=== PATIENT | female | born 1970 | race Caucasian/White ===

== ENCOUNTER 2016-11-13 07:15 | Emergency (ER) | payer MEDICAID ==
[~2016-11-13] VITALS: Ht 162.6 cm; Wt 76.9 kg
[~2016-11-13 07:15] MED LIST: 70/30; ALBU2.5V NEB; ALPR-475; CAFFEINE; CARI250T PO; CARI350T PO; DULO60CA7 PO; ESCI10TA10 PO; ESOM40CA; LISI-167 PO; REGULAR INSULIN SQ
[2016-11-13] MEDS ORDERED: SUMA100T3 PO (08:14)
[2016-11-13] MEDS ORDERED: KETOROLAC 30 MG/1 ML IM ONE (08:30)
[2016-11-13] MEDS ORDERED: OXYcodone/APAP 5/325MG TABLET PO ONE (08:30)
[2016-11-13] MEDS ORDERED: KETOROLAC 30 MG/1 ML ONE (09:48)
[2016-11-13] MEDS ORDERED: OXYcodone/APAP 5/325MG TABLET ONE (09:48)
[2016-11-13 10:34] LABS: C-REACTIVE PROTEIN, QUANT 0.04 mg/dL (0.02-0.49)
[2016-11-13 10:42] LABS: BLOOD UREA NITROGEN 16 mg/dL (7-18)
[2016-11-13 12:10] VITALS: BP 111/70
== END 2016-11-13 12:12 | disposition home or self-care (01) ==
LOC: ED 10:54
DX: M79.644 Pain in right finger(s) (principal); I10 Essential (primary) hypertension; E78.00 Pure hypercholesterolemia, unspecified; E11.9 Type 2 diabetes mellitus without complications; J45.909 Unspecified asthma, uncomplicated; G43.909 Migraine, unspecified, not intractable, without status migrainosus
CPT/HCPCS: 36415; 73140; 80048; 82040; 85025; 86140; 96372; 99285; J1885

== ENCOUNTER 2017-07-02 19:43 | Emergency (ER) | payer MEDICAID ==
[~2017-07-02] VITALS: Ht 162.6 cm; Wt 88.9 kg
[~2017-07-02 19:43] MED LIST changes: +AMIT150T PO; +SUMA100T3 PO; +[UNRECOGNIZED DRUG - OTHER]
[2017-07-02] MEDS ORDERED: OMNIPAQUE 350 MG/ML, 100ML BOTTLE ONE (20:32)
[2017-07-02 20:50] LABS: BASOPHILS # (AUTO) 0.02 x10^3/uL (0-0.1); BASOPHILS % (AUTO) 0 % (0-1); EOSINOPHILS % (AUTO) 0 % (1-7); LYMPHOCYTES % (AUTO) 38 % (22-44); MD NO; MEAN CORPUSCULAR HEMOGLOBIN 31.2 pg (27.0-34.8); MEAN CORPUSCULAR HGB CONC 33.2 g/dL (32.4-35.8); MEAN CORPUSCULAR VOLUME 93.9 fL (80-100); MEAN PLATELET VOLUME 7.3 fL (7.4-10.4); MONOCYTES # (AUTO) 0.48 x10^3/uL (0.2-0.8); MONOCYTES % (AUTO) 8 % (2-9); NEUTROPHILS # (AUTO) 3.44 x10^3/uL (1.8-6.8); NEUTROPHILS % (AUTO) 54 % (42-75); PLATELET COUNT 229 x10^3/uL (130-400); RED CELL DISTRIBUTION WIDTH 14.6 % (9.6-15.2)
[2017-07-02] MEDS ORDERED: DIPHENHYDRAMINE 50 MG/ML, 1ML IVPush ONE (21:00)
[2017-07-02] MEDS ORDERED: METOCLOPRAMIDE 5 MG/ML, 2ML IVPush ONE (21:00)
[2017-07-02] MEDS ORDERED: SODIUM CHLORIDE 0.9% 1,000ML IVBOLUS ONE ×2 (21:00→22:30)
[2017-07-02] MEDS ORDERED: ONDANSETRON 2MG/ML, 2ML IVPush ONE (21:00)
[2017-07-02] MEDS ORDERED: FAMOTIDINE 20 MG/2 ML IVP ONE (21:00)
[2017-07-02] MEDS ORDERED: MAALOX/HYOSCYAMINE/LIDOCAINE 45 ML BTL PO ONE (21:00)
[2017-07-02 21:03] LABS: ALANINE AMINOTRANSFERASE 28 U/L (12-78); ANION GAP 6 mmol/L (5-15); CALCIUM 8.2 mg/dL (8.5-10.1); CHLORIDE 110 mmol/L (98-107); CREATININE 0.74 mg/dL (0.55-1.02)
[2017-07-02 21:05] LABS: ALKALINE PHOSPHATASE 68 U/L (45-117); BILIRUBIN,TOTAL 0.2 mg/dL (0.2-1.0); TOTAL PROTEIN 6.8 g/dL (6.4-8.2)
[2017-07-02] MEDS ORDERED: DIPHENHYDRAMINE 50 MG/ML, 1ML ONE (21:07)
[2017-07-02] MEDS ORDERED: ONDANSETRON 2MG/ML, 2ML ONE (21:07)
[2017-07-02] MEDS ORDERED: MAALOX/HYOSCYAMINE/LIDOCAINE 45 ML BTL ONE (21:07)
[2017-07-02] MEDS ORDERED: FAMOTIDINE 20 MG/2 ML ONE (21:07)
[2017-07-02] MEDS ORDERED: METOCLOPRAMIDE 5 MG/ML, 2ML ONE (21:08)
[2017-07-02 21:18] LABS: MICROSCOPIC AUTO
[2017-07-02 21:19] LABS: CULTURE INDICATED? YES
[2017-07-02] MEDS ORDERED: MAGNESIUM SULFATE PMX 2GM/50ML 50 ML IV ONE (22:30)
[2017-07-03 00:21] VITALS: BP 122/83
== END 2017-07-03 00:54 | disposition home or self-care (01) ==
LOC: ED 21:46
DX: G43.009 Migraine without aura, not intractable, without status migrainosus (principal); E86.0 Dehydration; K25.3 Acute gastric ulcer without hemorrhage or perforation; B96.81 Helicobacter pylori [H. pylori] as the cause of diseases classified elsewhere; R19.7 Diarrhea, unspecified; R10.32 Left lower quadrant pain
CPT/HCPCS: 36415; 74177; 80053; 81001; 83690; 85025; 87086; 96361; 96365; 96375; 99285; J1200; J2405; J2765; J3475; J7030; Q9967; S0028

== ENCOUNTER 2017-07-03 17:22 | Emergency (ER) | payer MEDICAID ==
[~2017-07-03] VITALS: Ht 162.6 cm; Wt 87.4 kg
[2017-07-03] MEDS ORDERED: DIPHENHYDRAMINE 50 MG/ML, 1ML IVPush ONE (18:30)
[2017-07-03] MEDS ORDERED: KETOROLAC 30 MG/1 ML IVPush ONE (18:30)
[2017-07-03] MEDS ORDERED: METOCLOPRAMIDE 5 MG/ML, 2ML IVPush ONE (18:30)
[2017-07-03] MEDS ORDERED: SODIUM CHLORIDE 0.9% 1,000ML IVBOLUS ONE (18:30)
[2017-07-03] MEDS ORDERED: DEXAMETHASONE 4 MG/ML, 1ML IVPush ONE (18:30)
[2017-07-03] MEDS ORDERED: DEXAMETHASONE 4 MG/ML, 5ML ONE (19:16)
[2017-07-03] MEDS ORDERED: DIPHENHYDRAMINE 50 MG/ML, 1ML ONE (19:17)
[2017-07-03] MEDS ORDERED: KETOROLAC 30 MG/1 ML ONE (19:17)
[2017-07-03] MEDS ORDERED: METOCLOPRAMIDE 5 MG/ML, 2ML ONE (19:17)
[2017-07-03 20:43] VITALS: BP 132/68
== END 2017-07-03 20:46 | disposition home or self-care (01) ==
LOC: ED 20:28
DX: G43.011 Migraine without aura, intractable, with status migrainosus (principal); R11.2 Nausea with vomiting, unspecified; R19.7 Diarrhea, unspecified; I10 Essential (primary) hypertension; E11.9 Type 2 diabetes mellitus without complications; Z86.73 Personal history of transient ischemic attack (TIA), and cerebral infarction without residual deficits; Z86.718 Personal history of other venous thrombosis and embolism; Z88.0 Allergy status to penicillin; Z88.6 Allergy status to analgesic agent
CPT/HCPCS: 96361; 96374; 96375; 99285; J1100; J1200; J1885; J2765; J7030

== ENCOUNTER 2017-10-06 05:51 | Emergency (ER) | payer MEDICAID ==
[~2017-10-06] VITALS: Ht 162.6 cm; Wt 84.1 kg
[2017-10-06] MEDS ORDERED: DIPHENHYDRAMINE 50 MG/ML, 1ML IM ONE (06:30)
[2017-10-06] MEDS ORDERED: METOCLOPRAMIDE 5 MG/ML, 2ML IM ONE (06:30)
[2017-10-06] MEDS ORDERED: KETOROLAC 30 MG/1 ML IM ONE (06:30)
[2017-10-06] MEDS ORDERED: KETOROLAC 30 MG/1 ML ONE (06:34)
[2017-10-06] MEDS ORDERED: ONDANSETRON ODT 4 MG ONE (06:34)
[2017-10-06] MEDS ORDERED: DIPHENHYDRAMINE 50 MG/ML, 1ML ONE (06:34)
[2017-10-06] MEDS ORDERED: PROCHLORPERAZINE 5 MG/ML, 2ML ONE (06:36)
[2017-10-06] MEDS ORDERED: PROCHLORPERAZINE 5 MG/ML, 2ML IM ONE (07:00)
[2017-10-06 08:02] VITALS: BP 96/44
== END 2017-10-06 08:41 | disposition home or self-care (01) ==
LOC: ED 06:26
DX: S56.911A Strain of unspecified muscles, fascia and tendons at forearm level, right arm, initial encounter (principal); G43.909 Migraine, unspecified, not intractable, without status migrainosus; E78.00 Pure hypercholesterolemia, unspecified; E11.9 Type 2 diabetes mellitus without complications; F25.9 Schizoaffective disorder, unspecified; F31.9 Bipolar disorder, unspecified; I10 Essential (primary) hypertension; I25.2 Old myocardial infarction; J45.909 Unspecified asthma, uncomplicated; Z86.73 Personal history of transient ischemic attack (TIA), and cerebral infarction without residual deficits; Z86.718 Personal history of other venous thrombosis and embolism; G89.29 Other chronic pain; W06.XXXA Fall from bed, initial encounter; Y93.89 Activity, other specified; Y92.89 Other specified places as the place of occurrence of the external cause; Y99.2 Volunteer activity
CPT/HCPCS: 73090; 96372; 99284; J0780; J1200; J1885

== ENCOUNTER 2018-05-28 19:20 | Emergency (ER) | payer MEDICAID ==
[~2018-05-28] VITALS: Ht 172.7 cm; Wt 80.0 kg
[2018-05-28 19:26] VITALS: BP 108/64
[2018-05-28 19:46] LABS: BASOPHILS # (AUTO) 0.04 x10^3/uL (0-0.1); BASOPHILS % (AUTO) 0 % (0-1); EOSINOPHILS # (AUTO) 0.25 x10^3/uL (0-0.4); EOSINOPHILS % (AUTO) 3 % (1-7); LYMPHOCYTES # (AUTO) 2.93 x10^3/uL (1-3.4); LYMPHOCYTES % (AUTO) 36 % (22-44); MD NO; MEAN CORPUSCULAR HEMOGLOBIN 32.8 pg (27.0-34.8); MEAN CORPUSCULAR VOLUME 96.4 fL (80-100); MEAN PLATELET VOLUME 9.4 fL (7.4-10.4); MONOCYTES # (AUTO) 0.55 x10^3/uL (0.2-0.8); MONOCYTES % (AUTO) 7 % (2-9); NEUTROPHILS # (AUTO) 4.37 x10^3/uL (1.8-6.8); NEUTROPHILS % (AUTO) 54 % (42-75); PLATELET COUNT 187 x10^3/uL (130-400); RED BLOOD COUNT 4.39 x10^6/uL (3.82-5.3); RED CELL DISTRIBUTION WIDTH 13.1 % (9.6-15.2)
[2018-05-28 19:57] LABS: ALBUMIN 3.9 g/dL (3.4-5.0); ANION GAP 7 mmol/L (5-15); CALCIUM 8.9 mg/dL (8.5-10.1); CHLORIDE 107 mmol/L (98-107); CREATININE 0.87 mg/dL (0.55-1.02)
--- NOTE | 2018-05-28 20:08 | NUR ---
URINE SAMPLE PROVIDED BY PT. COLLECTED AND SENT TO LAB
[2018-05-28 20:25] LABS: HCG UR SG 1.016 (1.003-1.030); MICROSCOPIC AUTO
[2018-05-28] MEDS ORDERED: FAMOTIDINE 20 MG TABLET PO ONE (20:30)
[2018-05-28 20:34] LABS: CULTURE INDICATED? YES
[2018-05-28] MEDS ORDERED: FAMOTIDINE 20 MG TABLET ONE (20:34)
[2018-05-28] MEDS ORDERED: hydrOXyzine 50MG TABLET ONE (20:34)
--- NOTE | 2018-05-28 20:40 | NUR ---
PT MEDICATED PER EMAR. 5 RIGHTS ADDRESSED. AWAITING LABS AT THIS TIME. PT DENIES ANY NEEDS.
--- NOTE | 2018-05-28 22:21 | NUR ---
Patient/Caregiver given discharge instructions and they have confirmed that they understand the instructions. Patient ambulatory with steady gait.
== END 2018-05-28 22:23 | disposition home or self-care (01) ==
LOC: ED 22:20
DX: B37.2 Candidiasis of skin and nail (principal); N81.10 Cystocele, unspecified; J45.909 Unspecified asthma, uncomplicated; I10 Essential (primary) hypertension; E11.9 Type 2 diabetes mellitus without complications; E78.00 Pure hypercholesterolemia, unspecified; Z86.73 Personal history of transient ischemic attack (TIA), and cerebral infarction without residual deficits; Z86.718 Personal history of other venous thrombosis and embolism
CPT/HCPCS: 36415; 80048; 81001; 81025; 82040; 85025; 87086; 99284; J7512; Q0177

== ENCOUNTER 2018-07-19 09:14 | Emergency (ER) | payer MEDICAID ==
[~2018-07-19] VITALS: Ht 162.6 cm; Wt 77.0 kg
--- NOTE | 2018-07-19 09:48 | NUR ---
PT AMBULATED TO ROOM WITH STEADY GAIT. PT STATED THAT SHE STEPPED ON A INDU NAIL 2 DAYS AGO. C/O NUMBNESS FROM KNEE DOWN ON THE RIGHT LEG. PT HAS A SMALL PUNCTURE WOUND ON THE BOTTOM OF RIGHT FOOT WITH SLIGHT REDNESS AND SWELLING. PT IS ALERT, ORIENTED, WITH NAD. PT IS CONNECTED TO THE MONITOR. CALL LIGHT WITHIN REACH.
[2018-07-19] MEDS ORDERED: DIPH,PERTUSS(ACELL),TET VAC/PF 0.5 ML IM-VACC ONE ×2 (09:53→10:00)
[2018-07-19] MEDS ORDERED: KETOROLAC 30 MG/1 ML IM ONE (10:00)
[2018-07-19] MEDS ORDERED: CEFAZOLIN 1,000 MG IM ONE (10:00)
[2018-07-19] MEDS ORDERED: SULFAMETH./TRIMETHOPRIM DS 800MG/160MG TABLET PO ONE (10:00)
[2018-07-19] MEDS ORDERED: CEFAZOLIN 1,000 MG ONE (10:01)
[2018-07-19] MEDS ORDERED: KETOROLAC 30 MG/1 ML ONE (10:01)
[2018-07-19] MEDS ORDERED: SULFAMETH./TRIMETHOPRIM DS 800MG/160MG TABLET ONE (10:01)
[2018-07-19] MEDS ORDERED: LIDOCAINE-MPF 1%, 5ML ONE (10:02)
--- NOTE | 2018-07-19 10:02 | NUR ---
PT TAKEN TO X RAY.
--- NOTE | 2018-07-19 10:19 | NUR ---
PT MEDICATED PER ORDER. PT TOLERATED WELL.
[2018-07-19 10:47] VITALS: BP 99/43
--- NOTE | 2018-07-19 10:47 | NUR ---
PT IS RESTING IN BED, TEXTING ON PHONE, RESPIRATIONS EQUAL AND NON LABORED. NAD. PT IS CONNECTED TO THE MONITOR. CALL LIGHT WITHIN REACH.
--- NOTE | 2018-07-19 11:25 | NUR ---
Patient given discharge instructions and they have confirmed that they understand the instructions. Patient ambulatory with steady gait.
== END 2018-07-19 11:27 | disposition home or self-care (01) ==
LOC: ED 10:15
DX: S91.331A Puncture wound without foreign body, right foot, initial encounter (principal); E78.00 Pure hypercholesterolemia, unspecified; I10 Essential (primary) hypertension; E11.9 Type 2 diabetes mellitus without complications; J45.909 Unspecified asthma, uncomplicated; G43.909 Migraine, unspecified, not intractable, without status migrainosus; I25.2 Old myocardial infarction; X58.XXXA Exposure to other specified factors, initial encounter; Y93.89 Activity, other specified; Y92.89 Other specified places as the place of occurrence of the external cause; Y99.8 Other external cause status
CPT/HCPCS: 73620; 90471; 90715; 96372; 99283; J0690; J1885

== ENCOUNTER 2018-12-28 06:59 | Emergency (ER) | payer MEDICAID, OTHER ==
[~2018-12-28] VITALS: Ht 162.6 cm; Wt 70.8 kg
[~2018-12-28 06:59] MED LIST changes: -ALPR-475; +ALPR0.5T7
--- NOTE | 2018-12-28 07:29 | NUR ---
PT AMBULATORY TO ROOM 40 W/ C/O MIGRAINE BROWN X 2 DAYS. PT STATES SHE TAKES IMITREX FOR IT BUT HAS NOT HAD ANY MEDICATIONS TO HELP W/ MIGRAINE. ALSO C/O COUGHING UP BLOOD. STATES IT HAPPENS EVERYTIME SHE HAS MIGRAINE. STATES BROWN EVERY 3 MONTHS. PT RESTING ON GURNEY. NADN. MONITORS APPLIED. ERP DR. LUCIANO AT BEDSIDE.
[2018-12-28] MEDS ORDERED: DIPHENHYDRAMINE 50 MG/ML, 1ML ONE (07:38)
[2018-12-28] MEDS ORDERED: KETOROLAC 30 MG/1 ML ONE (07:38)
[2018-12-28] MEDS ORDERED: METOCLOPRAMIDE 5 MG/ML, 2ML ONE (07:38)
[2018-12-28] MEDS ORDERED: KETOROLAC 30 MG/1 ML IVPush ONE (08:00)
[2018-12-28] MEDS ORDERED: METOCLOPRAMIDE 5 MG/ML, 2ML IVPush ONE (08:00)
[2018-12-28] MEDS ORDERED: DIPHENHYDRAMINE 50 MG/ML, 1ML IVPush ONE (08:00)
--- NOTE | 2018-12-28 08:19 | NUR ---
PT STATES BROWN MUCH IMPROVED AFTER ADMIN OF MEDICATIONS PER JUL. PT PLACED FOR RECHECK.
[2018-12-28 08:25] VITALS: BP 98/56
[2018-12-28] MEDS ORDERED: DEXAMETHASONE 4 MG/ML, 1ML ONE (08:59)
[2018-12-28] MEDS ORDERED: DEXAMETHASONE 4 MG/ML, 1ML IVPush ONE (09:00)
== END 2018-12-28 09:14 | disposition home or self-care (01) ==
LOC: ED 08:30
DX: G43.019 Migraine without aura, intractable, without status migrainosus (principal); E11.9 Type 2 diabetes mellitus without complications; I10 Essential (primary) hypertension; J45.909 Unspecified asthma, uncomplicated
CPT/HCPCS: 96374; 96375; 99283; J1100; J1200; J1885; J2765

== ENCOUNTER 2019-10-15 07:41 | Emergency (ER) | payer MEDICAID ==
[~2019-10-15] VITALS: Ht 162.6 cm; Wt 78.3 kg
--- NOTE | 2019-10-15 08:15 | NUR ---
ERMD AT BEDSIDE FOR ASSESSMENT.
[2019-10-15 08:44] LABS: BASOPHILS # (AUTO) 0.04 x10^3/uL (0-0.1); BASOPHILS % (AUTO) 0 % (0-1); EOSINOPHILS # (AUTO) 0.05 x10^3/uL (0-0.4); EOSINOPHILS % (AUTO) 1 % (1-7); LYMPHOCYTES # (AUTO) 1.08 x10^3/uL (1-3.4); LYMPHOCYTES % (AUTO) 11 % (22-44); MD NO; MEAN CORPUSCULAR HEMOGLOBIN 30.8 pg (27.0-34.8); MEAN CORPUSCULAR HGB CONC 33.1 g/dL (32.4-35.8); MEAN CORPUSCULAR VOLUME 93.1 fL (80-100); MEAN PLATELET VOLUME 7.7 fL (7.4-10.4); MONOCYTES # (AUTO) 0.75 x10^3/uL (0.2-0.8); MONOCYTES % (AUTO) 8 % (2-9); NEUTROPHILS # (AUTO) 7.94 x10^3/uL (1.8-6.8); NEUTROPHILS % (AUTO) 81 % (42-75); PLATELET COUNT 200 x10^3/uL (130-400); RED BLOOD COUNT 4.15 x10^6/uL (3.82-5.3); RED CELL DISTRIBUTION WIDTH 13.9 % (9.6-15.2)
[2019-10-15 08:57] LABS: ALBUMIN 3.1 g/dL (3.4-5.0); ANION GAP 7 mmol/L (5-15); CALCIUM 8.6 mg/dL (8.5-10.1); CHLORIDE 109 mmol/L (98-107); CREATININE 0.83 mg/dL (0.55-1.02)
[2019-10-15] MEDS ORDERED: LIDOCAINE 1%, 10ML INFIL ONE (10:00)
--- NOTE | 2019-10-15 10:13 | NUR ---
DR HURST AND DR. PALACIOS AT BEDSIDE FOR I&D.
[2019-10-15] MEDS ORDERED: OXYcodone/APAP 5/325MG TABLET ONE (10:26)
[2019-10-15] MEDS ORDERED: OXYcodone/APAP 5/325MG TABLET PO ONE (10:30)
--- NOTE | 2019-10-15 10:59 | NUR ---
PT MEDICATED FOR PAIN BEFORE D/C. PT MAD UPON D/C BECAUSE NO PAIN MEDICATION SCRIPT GIVEN. EXPLAINED TO PT ERMD WILL NOT BE GIVEN NARC SCRIPT FOR HOME. PT REMAINS ANGRY. PT GIVEN ALL D/C INSTRUCTIONS AND SCRIPT FOR ORAL ABX. PT HAS STEADY GAIT UPON D/C AND HAS ALL OWN BELONGINGS. HAS RIDE HOME.
[2019-10-15 11:00] VITALS: BP 132/84
== END 2019-10-15 11:02 | disposition home or self-care (01) ==
LOC: ED 08:27
DX: L03.113 Cellulitis of right upper limb (principal); L02.413 Cutaneous abscess of right upper limb; I10 Essential (primary) hypertension; E11.9 Type 2 diabetes mellitus without complications; E78.5 Hyperlipidemia, unspecified; E78.00 Pure hypercholesterolemia, unspecified; Z86.718 Personal history of other venous thrombosis and embolism
CPT/HCPCS: 36415; 80048; 82040; 85025; 99285

== ENCOUNTER 2020-06-01 15:42 | Emergency (ER) | payer MEDICAID ==
[~2020-06-01] VITALS: Ht 162.6 cm; Wt 82.2 kg
--- NOTE | 2020-06-01 16:16 | NUR ---
FINANCIAL ADVISER: PT AMBULATORY TO ROOM FROM LOBBY
[2020-06-01] MEDS ORDERED: BUPIVACAINE 0.25% ONE (17:17)
[2020-06-01] MEDS ORDERED: LIDOCAINE-MPF 1%, 5ML ONE (17:18)
[2020-06-01] MEDS ORDERED: BUPIVACAINE 0.25% INFIL ONE (17:30)
[2020-06-01] MEDS ORDERED: LIDOCAINE 1%, 10ML INFIL ONE (17:30)
--- NOTE | 2020-06-01 18:10 | NUR ---
PT VERBALIZES WOUND CARE. PT TO FOLLOW UP WITH ORTHO. PT DISCHARGED PER CARL BIANCHI
[2020-06-01 18:11] VITALS: BP 105/62
== END 2020-06-01 18:13 | disposition home or self-care (01) ==
LOC: ED 17:35
DX: M79.645 Pain in left finger(s) (principal); Z72.9 Problem related to lifestyle, unspecified; F17.210 Nicotine dependence, cigarettes, uncomplicated
CPT/HCPCS: 10060; 73140; 99283; 99406; J3490

== ENCOUNTER 2020-06-04 13:16 | Emergency (ER) | payer MEDICAID ==
[~2020-06-04] VITALS: Ht 162.6 cm; Wt 84.2 kg
[2020-06-04 13:54] VITALS: BP 122/59
[2020-06-04] MEDS ORDERED: LIDOCAINE-MPF 1%, 5ML ONE (14:27)
[2020-06-04] MEDS ORDERED: LIDOCAINE 1%, 10ML INFIL ONE (14:30)
--- NOTE | 2020-06-04 14:30 | NUR ---
ERP IN TO SEE PT.
--- NOTE | 2020-06-04 14:48 | NUR ---
PA IN TO SEE PT.
== END 2020-06-04 16:23 | disposition home or self-care (01) ==
LOC: ED 15:59
DX: L02.512 Cutaneous abscess of left hand (principal)
CPT/HCPCS: 64450; 99284; J3490

== ENCOUNTER 2020-11-24 11:17 | Emergency (ER) | payer MEDICAID ==
[~2020-11-24] VITALS: Ht 162.6 cm; Wt 95.8 kg
--- NOTE | 2020-11-24 11:36 | NUR ---
BP taken on L leg. Pt reports "they always have a hard time getting a blood pressure on me."
--- NOTE | 2020-11-24 11:44 | NUR ---
ASSUMED CARE OF PT. SHE REPORTED SWELLING OF LEFT EYE X2 DAYS WHICH THIS MORNING IS SWOLLEN SHUT AND SHE CAN'T SEE OUT OF IT, IT IS DRAINING. SHE REPORTS PAIN 10/10, THAT IN ADDITION TO BURNING OF EYE SHE HAS A MIGRAINE.
[2020-11-24] MEDS ORDERED: SULF-23 PO (11:52)
[2020-11-24] MEDS ORDERED: ESOM40CA PO (11:52)
[2020-11-24] MEDS ORDERED: FLUORESCEIN OPHTHALMIC 1 MG STRIP ONE (11:58)
[2020-11-24] MEDS ORDERED: HYDROcodone/APAP 5/325 TABLET ONE (12:21)
[2020-11-24 12:26] VITALS: BP 113/58
--- NOTE | 2020-11-24 12:27 | NUR ---
PT MEDICATED PER MARK, VSS, NADN. SITTING IN DARK AT THIS TIME.
[2020-11-24] MEDS ORDERED: HYDROcodone/APAP 5/325 TABLET PO ONE (12:30)
--- NOTE | 2020-11-24 14:08 | NUR ---
CARE FOR DC ONLY PROVIDED. PT DRESSED, STANDING BY [place]. NO IV TO DC. REVIEWED DC INSTRUCTIONS WITH PT. UNDERSTANDING VERBALIZED. PT LEFT AMB, GAIT STEADY.
== END 2020-11-24 14:11 | disposition home or self-care (01) ==
LOC: ED 13:50
DX: H10.022 Other mucopurulent conjunctivitis, left eye (principal); G43.909 Migraine, unspecified, not intractable, without status migrainosus; E11.9 Type 2 diabetes mellitus without complications; J45.909 Unspecified asthma, uncomplicated; I10 Essential (primary) hypertension; E78.00 Pure hypercholesterolemia, unspecified; Z86.718 Personal history of other venous thrombosis and embolism; Z87.11 Personal history of peptic ulcer disease; Z87.891 Personal history of nicotine dependence
CPT/HCPCS: 99283